=== PATIENT | male | born 1945 | race Caucasian/White ===

== ENCOUNTER 2016-07-23 11:07 | Day surgery (SDC) | payer OTHER ==
[2016-07-23 11:33] VITALS: BMI 22.7
[2016-07-23 12:35] LABS: BASO % 0.4 % (0.0-2.0); EOS # 0.1 K/uL (0.0-0.7); EOS % 1.5 % (0.0-4.0); HEMATOCRIT 45.4 % (35.0-51.0); LYMPH # 1.2 K/uL (1.0-4.3); LYMPH % 23.4 % (20.0-40.0); MEAN CELL VOLUME 89.7 fL (80.0-94.0); MEAN CORPUSCULAR HEMOGLOBIN 30.4 pg (27.0-31.0); MEAN CORPUSCULAR HGB CONC 33.9 g/dL (33.0-37.0); MEAN PLATELET VOLUME 10.2 fL (7.2-11.7); MONO # 0.4 K/uL (0.0-0.8); MONO % 7.9 % (0.0-10.0); NRBC % 0.1 % (0.0-2.0); RED CELL DISTRIBUTION WIDTH 13.5 % (11.5-14.5); WHITE BLOOD COUNT 5.2 K/uL (4.8-10.8)
[2016-07-23 12:38] LABS: CHLORIDE 102 mmol/L (98-107); POTASSIUM 3.6 mmol/L (3.6-5.2); SODIUM 141 mmol/L (132-148)
[2016-07-23 12:41] LABS: BLOOD UREA NITROGEN 18 mg/dL (9-20); CARBON DIOXIDE 28 mmol/L (22-30); GFR AFRICAN-AMERICAN > 60
[2016-07-23 12:42] LABS: CALCIUM 8.9 mg/dl (8.6-10.4); GLUCOSE,RANDOM 97 mg/dL (75-110)
--- NOTE | 2016-07-23 13:24 | CARD ---
APPROVED REPORT EKG Measurement Heart [id number] <Conclusion> Sinus bradycardia Left bundle branch block inverted T waves inferior leads, consider ischemia. Abnormal ECG
[2016-07-23] MEDS ORDERED: cefTRIAXone IV 1 gm in Dextros 50 ML IVPB ONE (15:04)
[2016-07-23] MEDS ORDERED: Iohexol 240 (50 ml) ONE (15:05)
[2016-07-23] MEDS ORDERED: Lactated Ringer's 1,000 ML IV ONE (15:16)
[2016-07-23] MEDS ORDERED: Midazolam 2 MG/2 ML VIAL ONE (15:19)
[2016-07-23] MEDS ORDERED: Propofol 10 mg/ml Inj (20 ML) ONE (15:19)
[2016-07-23] MEDS ORDERED: Acetaminophen-Codeine 300/30 mg Tab PO PRN (15:22)
[2016-07-23] MEDS ORDERED: ePHEDrine 50 mg/ml Inj ONE (15:42)
[2016-07-23] MEDS ORDERED: Atropine Sulfate 0.4 mg/ml (0.8mg/2ml) Syringe IV ONE (15:42)
--- NOTE | 2016-07-23 15:42 | HP ---
REASON FOR ADMISSION: For treatment of bladder neck contracture. 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 He also had some abnormalities in the u rethra right at the bladder neck right the other side, on the distal side. We did a biopsy, did not show any real information. We discussed options. The patient here for a cysto IOU. He has no gross hematuria. ____ microscopic hematuria. PAST MEDICAL AND SURGICAL HISTORY: No history of an [place] or CVA. SOCIAL HISTORY: Unremarkable. PHYSICAL EXAMINATION: GENERAL: Well-nourished male in no apparent distress. VITAL SIGNS: Within normal limits. ABDOMEN: Overall soft, nontender. No ____ mass appreciated. GENITALIA: Normal phallus ____. No testicular masses. RECTAL: A 30 gram prostate, felt smooth. LABORATORIES: See chart. DIAGNOSES: Voiding dysfunction, urinary retention, bladder neck contracture and bladder neck lesion. At this point, the plan is for as follows: We are going to plan for a cystoscopy IOU (internal optic al urethrotomy). Further plans will follow. ____ clinically and we will discuss other imaging -- up per tract, etc. etc. So, the plan for today is: 1. Antibiotic prophylaxis. 2. Cystoscopy and internal optical urethrotomy and then further plans will follow. I discussed with the patient risks, benefits and treatment alternatives. I discussed insertion of Fo jasmina catheter. We have discussed further plans. Paolo Bauer MD cc: [id number] TT: 07/23/2016 15:41:17 sn
[2016-07-23] MEDS ORDERED: HYDROmorphone 0.5 mg/0.5 ml ISec IVP PRN (15:46)
--- NOTE | 2016-07-23 16:35 | OP ---
PROCEDURE DATE: 07/23/2016 PREOPERATIVE DIAGNOSES: Urethral stricture, possible bladder neck contracture. POSTOPERATIVE DIAGNOSIS: Urethral stricture disease. PROCEDURE: Cystoscopy, internal optical urethrotomy and insertion of Wang catheter. COMPLICATIONS: None. FINDINGS: Normal meatus. There is a stricture within the very proximal pendulous urethra very close to the prostatic veru that is very tight, although it is not pinpoint. Whatever abnormal tissue was there before is not there at this point, but it is just completely tight . The bladder neck from the ____ is somewhat occlusive. It is not [place] anatomy. He has had previous work, but it is not wide open, but we were able to, once we get past the stricture, were able to neg otiate a 22-[place] scope. Ureteral orifices within normal limits. The rest of the bladder was within normal limits. INDICATIONS: See the history and physical for further details. A very pleasant gentleman came in wi th decreased flow of stream, retention, incomplete bladder emptying, frequency, urgency, irritative a nd obstructive complaints. We did an office cysto. I saw some abnormal tissue. In retrospect, I think this was just at the ure thral stricture site and it is really very proximal in the urethra, but before the prostate. It is n ot quite the bladder neck. During that procedure, patient was fairly uncomfortable and difficult to get a good look. I just kne w that he had tightness that I could not negotiate the scope past. So, the patient is here for the above procedure. PROCEDURE: After obtaining informed consent, ____ table, routine monitors placed, timeouts were call ed to confirm the patient and positioning. Cystoscope via urethra. ____ patient given antibiotic prophylaxis, cystoscope via the urethra. The meatus is normal. The distal urethra is within normal limits but then when we get more proximally, there is a tightness . It is not pinpoint, but I took multiple pictures. It is just very abnormal. I put a ureteral catheter olive tipped to it and then we used a cold knife to cut anteriorly and then once we got through there, the ____ is very still tight, but not wide open, but we were able to nego tiate past there. The rest of the bladder was inspected. The ureteral orifice was normal, clear efflux from both. Pictures were taken and saved. We put a cone-tipped [place] tip catheter, drained the bladder. The patient tolerated procedure wel l without complication. Rectal exam shows a 20-30 gram prostate. Paolo Bauer MD cc: [id number] TT: 07/23/2016 16:34:55 sn
[2016-07-23 17:56] VITALS: BP 150/58; PULSE 58; RESP 20; TEMP 97.9; O2SAT 98
--- NOTE | 2016-07-24 08:27 | HP ---
REASON FOR ADMISSION: Voiding dysfunction, urinary retention, urethral stricture disease. HISTORY OF PRESENT ILLNESS: A very pleasant gentleman. He is a 70-year-old who has voiding dysfuncti on. We did a cystoscopy in the office, has decreased force of stream. He has frequency, incomplete bladder emptying . A urethral stricture, bladder neck contracture . The patient had an in-office cystoscopy with some actually fluffy abnormal tissue. The patient was f airly uncomfortable. We did a biopsy, pending results, but I think it was just traumatic, but basica lly he has got a stricture and I could not get all the way in. So we discussed options here today for a cystoscopy IOU, possible bladder neck incision. PAST MEDICAL AND SURGICAL HISTORY: See the addendum below because in retrospect it is a urethr al stricture in the pendulous urethra. It was difficult to see. PAST MEDICAL AND SURGERY HISTORY: No history of an [place], CVA. SOCIAL HISTORY: Essentially unremarkable. PHYSICAL EXAMINATION: GENERAL: Well-developed, well-nourished male, in no apparent distress. VITAL SIGNS: Within normal limits. ABDOMEN: Overall soft normal phallus without discharge. No testicular masses. RECTAL: prostate. LABORATORIES: See chart. DIAGNOSES: Urinary retention, voiding dysfunction, decreased flow of stream, frequency. We discussed options with the patient, risks, benefits and treatment alternatives at length. PLAN: As follows: We are planning for a cystoscopy IOU, possible bladder neck contracture. Plan is antibiotic prophylaxis and then a cystoscopy, and then further plans will follow depend ing on what we find clinically. Risks and benefits were discussed at length including the idea of re current retention. ADDENDUM: See the operative note. It turns out that the patient had a urethral stricture. It is not a bladder neck. The bladder neck happens to be tight also. I think in retrospect that it is just the patient was so uncomfortable. S ee the body of the operative report, because it seems to be more pendulous urethra just before the pr ostatic urethra. The prostatic urethra I can see the pictures taken on the chart, is a visually occlusive prosta te and the bladder neck itself. He has had some kind of procedures before, so it is not [place], but it is not wide open for sure and that is also tight, but I did not cut in that area. See the body of the operative report where we basically cut just the urethral stricture with an IOU. See the pictures that are included in the chart and see the operative note, but the bladder neck ____ _ tight. We were able to negotiate a 22 scope in this. Paolo Bauer MD cc: [id number] TT: 07/23/2016 16:33:34 ln
== END 2016-07-23 17:50 | disposition home or self-care (01) ==
LOC: C.SDS 11:07
PROVIDERS: ATTEND Urology
DX: N35.8 Other urethral stricture (principal); R33.8 Other retention of urine; R35.0 Frequency of micturition; R39.14 Feeling of incomplete bladder emptying
CPT/HCPCS: 36415; 52275; 80048; 85025; 93005; J0696; J7120